=== PATIENT | female | born 1980 ===

== ENCOUNTER 2017-04-01 18:39 | Emergency (ER) | payer SELFPAY ==
[2017-04-01 18:45] VITALS: BP 154/78; PULSE 93; RESP 18; TEMP 98.7; O2SAT 98
[2017-04-01] MEDS ORDERED: Sodium Chloride 0.9% 1,000 ML IV STA (19:05)
--- NOTE | 2017-04-01 19:08 | ED PDOC ---
HPI: Female Pain Time Seen by Provider: 04/01/17 19:06 Chief Complaint (Nursing): Female Genitourinary Chief Complaint (Provider): VAGINAL BLEEDING History Per: Patient (36 Y/O FEMALE LMP 12/06/2016 HERE WITH 3 WEEKS OF VAGINAL BLEEDING HEAVY WITH CLOTS. PATIENT STATES SHE FEELS FEVERISH YESTERDAY AND UNSURE IF RELATED TO SYMPTOMS. HAS NO PRIOR TESTING FOR VAGINAL BLEEDING. HAS HAD BILATERAL TUBAL LIGATION TO PREVENT .) Past Medical History Reviewed: Historical Data, Nursing Documentation, Vital Signs Vital Signs: Last Vital Signs Temp 98.7 F 04/01/17 18:42 Pulse 93 H 04/01/17 18:42 Resp 18 04/01/17 18:42 BP 154/78 H 04/01/17 18:42 Pulse Ox 98 04/01/17 18:42 - Surgical History Surgical History: - Family History Family History: States: Diabetes, Hypertension - Home Medications Home Medications: Ambulatory Orders Medication Instructions Recorded Ondansetron Hydrochloride 4 mg PO Q6 PRN #12 tab 07/18/14 Ranitidine HCl [Zantac 150] 150 mg PO BID #20 tab 07/18/14 - Allergies Allergies/Adverse Reactions: Allergies Allergy/AdvReac Type Severity Reaction Status Date / Time No Known Allergies Allergy Verified 04/01/17 18:41 Review of Systems ROS Statement: Except As Marked, All Systems Reviewed And Found Negative Genitourinary Female: Positive for: Vaginal Bleeding Physical Exam - Reviewed Nursing Documentation Reviewed: Yes Vital Signs Reviewed: Yes - Physical Exam Appears: Positive for: Well, Non-toxic, No Acute Distress Head Exam: Positive for: ATRAUMATIC, NORMAL INSPECTION, NORMOCEPHALIC Skin: Positive for: Normal Color, Warm, DRY Eye Exam: Positive for: EOMI, Normal appearance, PERRL ENT: Positive for: Normal ENT Inspection Neck: Positive for: Normal, Painless ROM Cardiovascular/Chest: Positive for: Regular Rate, Rhythm Respiratory: Positive for: CNT, Normal Breath Sounds Gastrointestinal/Abdominal: Positive for: Normal Exam, Bowel Sounds, Soft Pelvic Exam: Positive for: Active Bleeding Back: Positive for: Normal Inspection Extremity: Positive for: Normal ROM Neurologic/Psych: Positive for: Alert, Oriented - Laboratory Results Urine POC: Negative - ECG O2 Sat by Pulse Oximetry: 98 - Progress ED Course And Treament: NS 1 LITER 500 ML PER HOUR Disposition - Clinical Impression Clinical Impression: Dysmenorrhea - Patient ED Disposition Is Patient to be Admitted: Transfer of Care - Disposition Disposition: Transfer of Care Disposition Time: 20:00 Condition: FAIR Print Language: GEORGIAN Patient Signed Over To: Cathi Mcmanus Handoff Comments: PENDING BLOODWORK/US
[2017-04-01 19:41] LABS: BASO # 0.1 K/uL (0.0-0.2); BASO % 0.9 % (0.0-2.0); EOS # 0.2 K/uL (0.0-0.7); EOS % 2.1 % (0.0-4.0); HEMATOCRIT 34.2 % (34.0-47.0); LYMPH # 2.6 K/uL (1.0-4.3); LYMPH % 22.5 % (20.0-40.0); MEAN CORPUSCULAR HEMOGLOBIN 26.3 pg (27.0-31.0); MEAN CORPUSCULAR HGB CONC 32.4 g/dL (33.0-37.0); MEAN PLATELET VOLUME 9.2 fl (7.2-11.7); MONO # 0.6 K/uL (0.0-0.8); MONO % 5.1 % (0.0-10.0); NEUT % 69.4 % (50.0-75.0); RED CELL DISTRIBUTION WIDTH 15.7 % (11.5-14.5); WHITE BLOOD COUNT 11.6 K/uL (4.8-10.8)
[2017-04-01 19:53] LABS: ALB/GLOB RATIO 1.2 (1.0-2.1); ALKALINE PHOSPHATASE 107 U/L (38-126); ALT/SGPT 55 U/L (9-52); AST/SGOT 48 U/L (14-36); BILIRUBIN,TOTAL 0.2 mg/dl (0.2-1.3); BLOOD UREA NITROGEN 14 mg/dl (7-17); CALCIUM 8.8 mg/dL (8.4-10.2); CARBON DIOXIDE 29 mmol/L (22-30); CHLORIDE 97 mmol/L (98-107); GFR AFRICAN-AMERICAN > 60; GLUCOSE,RANDOM 246 mg/dL (65-105); POTASSIUM 4.1 MMOL/L (3.6-5.0); SODIUM 137 mmol/l (132-148); TOTAL PROTEIN 7.8 G/DL (6.3-8.2)
--- NOTE | 2017-04-01 20:28 | ED PDOC ---
- Laboratory Results Result Diagrams: 04/01/17 19:15 04/01/17 19:15 Urine POC: Negative - ECG O2 Sat by Pulse Oximetry: 98 Medical Decision Making Medical Decision Making: Case endorsed to script writer from JACKY Collado at 20:00 pending diagnostic review and re-eval HPI: Female Pain Time Seen by Provider: 04/01/17 19:06 Chief Complaint (Nursing): Female Genitourinary Chief Complaint (Provider): VAGINAL BLEEDING History Per: Patient (36 Y/O FEMALE LMP 12/06/2016 HERE WITH 3 WEEKS OF VAGINAL BLEEDING HEAVY WITH CLOTS. PATIENT STATES SHE FEELS FEVERISH YESTERDAY AND UNSURE IF RELATED TO SYMPTOMS. HAS NO PRIOR TESTING FOR VAGINAL BLEEDING. HAS HAD BILATERAL TUBAL LIGATION TO PREVENT .) Hgb 11.1 US: IMPRESSION: 1.4 cm fibroid in the anterior lower uterine segment. Bilateral ovarian cysts as above. Pt educated on results and demonstrated full understanding. Importance of follow up was stressed, given [facility] and Pt advised that [facility] will be contacting her as well Disposition - Clinical Impression Clinical Impression: Dysmenorrhea, Uterine fibroid - POA Present On Arrival: None - Disposition [facility]errals[facility] [[facility]] Disposition: Routine/Home Disposition Time: 21:54 Condition: STABLE Prescriptions: Ibuprofen [Motrin] 600 mg PO Q6 #20 tab Instructions: Uterine Fibroids (ED) Forms: [employer] (Latvian) Print Language: GUATEMALAN
--- NOTE | 2017-04-01 21:23 | US ---
EXAM: US Pelvis, Transvaginal CLINICAL HISTORY: 36 years old, female; Signs and symptoms; Menstruation abnormalities; Irregular menstruation; Additional info: Dysfunctional uterine bleeding. TECHNIQUE: Real-time transvaginal pelvic ultrasound (complete) with image documentation. Transvaginal imaging was used for better evaluation of the endometrium and adnexa. COMPARISON: No relevant prior studies available. FINDINGS: Uterus/cervix: Measured at 9.9 x 5.1 x 6.6 cm. Normal endometrial stripe thickness, measured at 9 mm. 1.4 cm fibroid in the anterior lower uterine segment. Right ovary: Measured at 4.3 x 1.8 x 4.4 cm. 2.4 cm simple appearing cyst. Normal blood flow. Left ovary: Measured at 4.9 x 4.3 x 4.1 cm. 3.2 cm simple appearing cyst. Normal blood flow. Free fluid: No free fluid. IMPRESSION: 1.4 cm fibroid in the anterior lower uterine segment. Bilateral ovarian cysts as above.
== END 2017-04-01 21:52 | disposition home or self-care (01) ==
LOC: H.ER 18:39
DX: D25.9 Leiomyoma of uterus, unspecified (principal); N94.6 Dysmenorrhea, unspecified
CPT/HCPCS: 76830; 80053; 81025; 85025; 86850; 86900; 96360; 96361; 99283; J7040

== ENCOUNTER 2017-09-28 18:21 | Emergency (ER) | payer SELFPAY ==
[2017-09-28 19:01] VITALS: TEMP 98.4
[2017-09-28] MEDS ORDERED: Sodium Chloride 0.9% 1,000 ML IV STA ×2 (19:20→20:30)
[2017-09-28 19:53] LABS: BASO # 0.1 K/uL (0.0-0.2); BASO % 0.3 % (0.0-2.0); EOS % 0.2 % (0.0-4.0); HEMATOCRIT 28.3 % (34.0-47.0); LYMPH # 0.4 K/uL (1.0-4.3); LYMPH % 1.6 % (20.0-40.0); MEAN CELL VOLUME 65.8 fl (81.0-99.0); MEAN CORPUSCULAR HEMOGLOBIN 19.3 pg (27.0-31.0); MEAN CORPUSCULAR HGB CONC 29.4 g/dL (33.0-37.0); MEAN PLATELET VOLUME 8.9 fl (7.2-11.7); MONO # 0.9 K/uL (0.0-0.8); MONO % 3.5 % (0.0-10.0); NEUT # 25.5 K/uL (1.8-7.0); NEUT % 94.4 % (50.0-75.0); PLATELET COUNT 319 K/uL (130-400); RED CELL DISTRIBUTION WIDTH 20.3 % (11.5-14.5); WHITE BLOOD COUNT 27.1 K/uL (4.8-10.8)
[2017-09-28] MEDS ORDERED: Iohexol 240 (50 ml) PO ONE (19:59)
[2017-09-28 20:02] LABS: ALKALINE PHOSPHATASE 85 U/L (38-126); ALT/SGPT 47 U/L (9-52); AST/SGOT 29 U/L (14-36); BILIRUBIN,TOTAL 0.4 mg/dl (0.2-1.3); BLOOD UREA NITROGEN 17 mg/dl (7-17); CALCIUM 8.9 mg/dL (8.4-10.2); CARBON DIOXIDE 24 mmol/L (22-30); CHLORIDE 104 mmol/L (98-107); GFR AFRICAN-AMERICAN > 60; GLUCOSE,RANDOM 181 mg/dL (65-105); LIPASE 41 U/L (23-300); POTASSIUM 4.1 MMOL/L (3.6-5.0); SODIUM 140 mmol/l (132-148); TOTAL PROTEIN 8.3 G/DL (6.3-8.2)
--- NOTE | 2017-09-28 20:08 | ED PDOC ---
HPI: Abdomen Time Seen by Provider: 09/28/17 19:14 Chief Complaint (Nursing): GI Problem Chief Complaint (Provider): Nausea, vomiting, diarrhea History Per: Patient History/Exam Limitations: no limitations Onset/Duration Of Symptoms: Hrs Outside of [place] travel?: No Current Symptoms Are (Timing): Still Present Location Of Pain/Discomfort: Epigastric Associated Symptoms: Nausea, Vomiting, Diarrhea Additional Complaint(s): 37yo obese female, presents to ED for evaluation of nausea, vomiting, diarrhea since this afternoon. Patient states she was at work and she felt nauseous, then reports 3 episodes of food colored vomit and 1 following episode with blood tinged vomit. She reports epigastric pain and 2 episodes of watery, brown stool. She denies any fever, chills, sick contacts, recent travel, recent antibiotics use or recent medication use. No other complaints. Past Medical History Reviewed: Historical Data, Nursing Documentation, Vital Signs Vital Signs: Last Vital Signs Temp 98.4 F 09/28/17 21:03 Pulse 90 09/28/17 21:03 Resp 17 09/28/17 21:03 BP 132/70 09/28/17 21:03 Pulse Ox 98 09/29/17 02:39 - Medical History PMH: No Chronic Diseases - Surgical History Surgical History: - Family History Family History: States: Diabetes, Hypertension - Home Medications Home Medications: Ambulatory Orders Medication Instructions Recorded Azithromycin 250 mg PO DAILY #4 tablet 09/29/17 Ibuprofen [Motrin Tab] 600 mg PO Q6 #30 tab 09/29/17 - Allergies Allergies/Adverse Reactions: Allergies Allergy/AdvReac Type Severity Reaction Status Date / Time No Known Allergies Allergy Verified 09/28/17 18:58 Review of Systems ROS Statement: Except As Marked, All Systems Reviewed And Found Negative Constitutional: Negative for: Fever, Chills Gastrointestinal: Positive for: Nausea, Vomiting, Abdominal Pain, Diarrhea Physical Exam - Reviewed Nursing Documentation Reviewed: Yes Vital Signs Reviewed: Yes - Physical Exam Appears: Positive for: Non-toxic, Uncomfortable Skin: Positive for: Normal Color Eye Exam: Positive for: Normal appearance Neck: Positive for: Supple Cardiovascular/Chest: Positive for: Regular Rate, Rhythm Respiratory: Positive for: Normal Breath Sounds Gastrointestinal/Abdominal: Positive for: Soft, Tenderness (epigasstric) Neurologic/Psych: Positive for: Alert, Oriented - Laboratory Results Result Diagrams: 09/28/17 19:45 09/28/17 19:45 - ECG O2 Sat by Pulse Oximetry: 98 (rA) Pulse Ox Interpretation: Normal Medical Decision Making Medical Decision Making: Impression: Gastroenteritis Plan: -- VBG -- Labs -- CT Abdomen -- Pepcid 20 mg IV -- IV Fluids -- Zofran 4mg IV Reassess CT A/P with IV Contrast FINDINGS: Lower thorax: Small hiatal hernia. Bibasilar nonspecific infiltrates are present , and minimal right middle lobe consolidation consistent with atelectasis or pneumonia. ABDOMEN: Liver: Fatty liver. Gallbladder and bile ducts: Unremarkable. No ductal dilation. Pancreas: Unremarkable. No mass. No ductal dilation. Spleen: Unremarkable. No splenomegaly. Adrenals: Unremarkable. No mass. Kidneys and ureters: Unremarkable. No solid mass. No hydronephrosis. Stomach and bowel: Unremarkable. No obstruction. No mucosal thickening. Appendix: Normal appendix. PELVIS: Bladder: Distended bladder measuring 13.5 cm. Reproductive: Right ovarian hypodense cyst measuring 4.3 x 2.7 cm. Uterus is seen. High riding left ovary with multiple follicles. ABDOMEN and PELVIS: Intraperitoneal space: Unremarkable. No free air. No significant fluid collection. Bones/joints: No acute fracture. No dislocation. Soft tissues: Unremarkable. Vasculature: Unremarkable. No abdominal aortic aneurysm. Lymph nodes: Subcentimeter para-aortic and retroperitoneal lymph nodes. IMPRESSION: 1. Distended bladder measuring 13.5 cm. Correlation with patient's urine retention versus lack of voiding before the CT scan is recommended. 2. Right ovarian hypodense cyst measuring 4.3 x 2.7 cm.If clinically warranted, a pelvic ultrasound may be helpful for further assessment. 3. Bibasilar nonspecific infiltrates are present, and minimal right middle lobe consolidation consistent with atelectasis or pneumonia. 230AM Pt. significantly improved after fluids, lactate clearing. No pelvic pain, no abd pain at this time. Will treat for PNA given leukocytosis and findings on CT and Xray. Pt. asymptomatic at this time, likely an early PNA. Will give dose of ceftriaxone and azithromycin in ER. [facility] followup given. Referral to clinic provided. Return precautions were discussed including worsening fevers, cough, pain, chills or other concerning symptoms. Scribe Attestation: Documented by Randi Mike acting as a scribe for Willem Kimble MD. Provider Attestation: All medical record entries made by the Scribe were at my direction and personally dictated by me. I have reviewed the chart and agree that the record accurately reflects my personal performance of the history, physical exam, medical decision making, and the department course for this patient. I have also personally directed, reviewed, and agree with the discharge instructions and disposition. Disposition - Clinical Impression Clinical Impression: Pneumonia, Abdominal pain - Patient ED Disposition Is Patient to be Admitted: No - Disposition Referrals: [facility] [Outside] Disposition: Routine/Home Disposition Time: 02:50 Condition: IMPROVED Prescriptions: Azithromycin 250 mg PO DAILY #4 tablet Ibuprofen [Motrin Tab] 600 mg PO Q6 #30 tab Instructions: Pneumonia (ED), Acute Abdominal Pain (DC) Forms: [employer] (Vietnamese) Print Language: KOREAN
[2017-09-28 20:22] LABS: ALB/GLOB RATIO 1.1 (1.0-2.1)
[2017-09-28 20:26] LABS: VENOUS BLOOD GAS BASE EXCESS 0.3 mmol/L (0.0-2.0); VENOUS BLOOD GAS PCO2 45 mmHg (40-60); VENOUS BLOOD PH 7.37 (7.32-7.43)
[2017-09-28 21:03] VITALS: BP 132/70; PULSE 90; RESP 17
[2017-09-28 21:18] LABS: NEUTROPHIL 87 % (42-75); REACTIVE LYMPHOCYTES 1 % (0-0); TOTAL CELLS COUNTED 100
[2017-09-28 22:27] LABS: VENOUS BLOOD GAS BASE EXCESS -0.4 mmol/L (0.0-2.0); VENOUS BLOOD GAS PCO2 42 mmHg (40-60); VENOUS BLOOD PH 7.38 (7.32-7.43)
[2017-09-28] MEDS ORDERED: Iohexol 300 100 ML IJ ONE (23:35)
--- NOTE | 2017-09-29 00:28 | CT ---
EXAM: CT Abdomen and Pelvis With Intravenous Contrast CLINICAL HISTORY: 37 years old, female; Pain; Abdominal pain; Epigastric; Additional info: Epig pain, n/v/d, abd pain, wbc 28. Sent phy. Doc. TECHNIQUE: Axial computed tomography images of the abdomen and pelvis with intravenous contrast. All CT scans at this facility use one or more dose reduction techniques, viz.: automated exposure control; ma/kV adjustment per patient size (including targeted exams where dose is matched to indication; i.e. head); or iterative reconstruction technique. 672 images are submitted. Axial images are submitted and lung windows.Oral contrast was administered. Coronal and sagittal reformatted images were created and reviewed. CONTRAST: 95 mL of [id number] administered intravenously. COMPARISON: CT - ABD PELVIS PO IV CONTRAST 2014-07-18 00:07 FINDINGS: Lower thorax: Small hiatal hernia. Bibasilar nonspecific infiltrates are present, and minimal right middle lobe consolidation consistent with atelectasis or pneumonia. ABDOMEN: Liver: Fatty liver. Gallbladder and bile ducts: Unremarkable. No ductal dilation. Pancreas: Unremarkable. No mass. No ductal dilation. Spleen: Unremarkable. No splenomegaly. Adrenals: Unremarkable. No mass. Kidneys and ureters: Unremarkable. No solid mass. No hydronephrosis. Stomach and bowel: Unremarkable. No obstruction. No mucosal thickening. Appendix: Normal appendix. PELVIS: Bladder: Distended bladder measuring 13.5 cm. Reproductive: Right ovarian hypodense cyst measuring 4.3 x 2.7 cm. Uterus is seen. High riding left ovary with multiple follicles. ABDOMEN and PELVIS: Intraperitoneal space: Unremarkable. No free air. No significant fluid collection. Bones/joints: No acute fracture. No dislocation. Soft tissues: Unremarkable. Vasculature: Unremarkable. No abdominal aortic aneurysm. Lymph nodes: Subcentimeter para-aortic and retroperitoneal lymph nodes. IMPRESSION: 1. Distended bladder measuring 13.5 cm. Correlation with patient's urine retention versus lack of voiding before the CT scan is recommended. 2. Right ovarian hypodense cyst measuring 4.3 x 2.7 cm.If clinically warranted, a pelvic ultrasound may be helpful for further assessment. 3. Bibasilar nonspecific infiltrates are present, and minimal right middle lobe consolidation consistent with atelectasis or pneumonia.
[2017-09-29] MEDS ORDERED: cefTRIAXone 2 GM in Sodium Chloride 0.9% 100 ML IVPB STA (02:22)
[2017-09-29 02:38] VITALS: O2SAT 98
--- NOTE | 2017-09-29 09:26 | RAD ---
HISTORY: possible PNA on CT, leukocytosis COMPARISON: 09/03/2010 TECHNIQUE: Chest PA and lateral FINDINGS: LUNGS: No active pulmonary disease. PLEURA: No significant pleural effusion identified. No pneumothorax apparent. CARDIOVASCULAR: Normal. OSSEOUS STRUCTURES: No significant abnormalities. VISUALIZED UPPER ABDOMEN: Normal. OTHER FINDINGS: None. IMPRESSION: No active disease. No significant interval change compared to the prior examination(s).
== END 2017-09-29 04:03 | disposition home or self-care (01) ==
LOC: H.ER 18:21
DX: J18.9 Pneumonia, unspecified organism (principal); K52.9 Noninfective gastroenteritis and colitis, unspecified; N83.201 Unspecified ovarian cyst, right side
CPT/HCPCS: 71020; 74177; 80053; 81025; 82803; 83690; 85025; 87040; 87086; 96374; 96375; 99284; J0696; J2405; J7040; Q9966; Q9967

== ENCOUNTER 2018-07-10 10:01 | Emergency (ER) | payer OTHER, SELFPAY ==
[2018-07-10 10:15] VITALS: BMI 43.4
[2018-07-10] MEDS ORDERED: Sodium Chloride 0.9% 1,000 ML IV STA (10:54)
[2018-07-10 11:33] LABS: BASO % 0.4 % (0.0-2.0); EOS % 0.1 % (0.0-4.0); LYMPH # 1.3 K/uL (1.0-4.3); LYMPH % 9.8 % (20.0-40.0); MEAN CORPUSCULAR HEMOGLOBIN 22.8 pg (27.0-31.0); MEAN CORPUSCULAR HGB CONC 32.1 g/dL (33.0-37.0); MEAN PLATELET VOLUME 8.8 fl (7.2-11.7); MONO # 1.3 K/uL (0.0-0.8); MONO % 9.6 % (0.0-10.0); NEUT # 10.8 K/uL (1.8-7.0); NEUT % 80.1 % (50.0-75.0); PLATELET COUNT 284 K/uL (130-400); RBC 4.37 Mil/uL (3.80-5.20); RED CELL DISTRIBUTION WIDTH 17.9 % (11.5-14.5); WHITE BLOOD COUNT 13.4 K/uL (4.8-10.8)
[2018-07-10 11:40] LABS: SQUAMOUS EPITHIAL 7 /hpf (0-5); URINE BACTERIA MANY (<OCC); URINE BILIRUBIN NEGATIVE (NEGATIVE); URINE BLOOD NEGATIVE (NEGATIVE); URINE CLARITY CLOUDY (Clear); URINE COLOR YELLOW (YELLOW); URINE GLUCOSE (UA) NEG (Normal); URINE LEUKOCYTE ESTERASE SMALL Leu/uL (Negative); URINE PROTEIN 100 mg/dL (NEGATIVE)
[2018-07-10 11:43] LABS: ALT/SGPT 25 U/L (9-52); AST/SGOT 24 U/L (14-36); BLOOD UREA NITROGEN 9 mg/dl (7-17); CALCIUM 8.8 mg/dL (8.4-10.2); GFR NON-AFRICAN AMERICAN > 60; LIPASE 45 U/L (23-300)
[2018-07-10 12:05] LABS: EOSINOPHIL 1 % (0-7); LYMPHOCYTE 10 % (20-50); MONOCYTE 9 % (0-10); NEUTROPHIL 80 % (42-75); TOTAL CELLS COUNTED 100
[2018-07-10 12:06] LABS: ANISOCYTOSIS SLIGHT; HYPOCHROMIC SLIGHT; PLATELET ESTIMATE NORMAL (NORMAL)
[2018-07-10 13:22] VITALS: TEMP 99.2
[2018-07-10 13:24] VITALS: BP 110/61; PULSE 78; RESP 15; O2SAT 96
[2018-07-10 14:04] LABS: VENOUS BLOOD GAS PCO2 38 mmHg (40-60); VENOUS BLOOD GAS PO2 52 mm/Hg (30-55); VENOUS BLOOD PH 7.43 (7.32-7.43)
--- NOTE | 2018-07-10 14:42 | ED PDOC ---
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 Patient reports that Tylenol no longer helps. Patient is able to tolerate PO, but denies nausea, vomiting, diarrhea, constipation, sick contacts, recent illnesses or any other medical complaints. PMD: none provided LNMP: 06/25/2018 Past Medical History Reviewed: Historical Data, Nursing Documentation, Vital Signs Vital Signs: Last Vital Signs Temp 99.2 F 07/10/18 13:24 Pulse 78 07/10/18 13:24 Resp 15 07/10/18 13:24 BP 110/61 07/10/18 13:24 Pulse Ox 96 07/10/18 14:49 - Medical History PMH: No Chronic Diseases - Surgical History Surgical History: No Surg Hx, - Family History Family History: States: Diabetes, Hypertension - Home Medications Home Medications: Ambulatory Orders Medication Instructions Recorded Cefdinir [Omnicef] 300 mg PO BID #20 cap 03/14/18 Cranberry 500 mg PO DAILY #20 capsule 03/14/18 Ibuprofen [Motrin Tab] 600 mg PO TID #20 tab 03/14/18 traMADol [Ultram] 50 mg PO TID #7 tab 03/14/18 levoFLOXacin [Levaquin] 750 mg PO DAILY #5 tab 07/10/18 - Allergies Allergies/Adverse Reactions: Allergies Allergy/AdvReac Type Severity Reaction Status Date / Time No Known Allergies Allergy Verified 03/14/18 10:51 Review of Systems ROS Statement: Except As Marked, All Systems Reviewed And Found Negative Constitutional: Positive for: Fever Gastrointestinal: Positive for: Abdominal Pain (lower), Other (left flank pain ) . Negative for: Nausea, Vomiting, Diarrhea, Constipation Genitourinary Female: Positive for: Dysuria Physical Exam - Reviewed Nursing Documentation Reviewed: Yes Vital Signs Reviewed: Yes - Physical Exam Appears: Positive for: Well (Patients blood pressure is normal and is tired but no cardiopulmonary distress) Skin: Positive for: Diaphoresis (and febrile) Cardiovascular/Chest: Positive for: Tachycardia, Other (regular rhythm) Respiratory: Positive for: Normal Breath Sounds, Other (respiratory rate normal ) Gastrointestinal/Abdominal: Positive for: Soft, Tenderness (suprapubic) Back: Positive for: L CVA Tenderness. Negative for: R CVA Tenderness Extremity: Positive for: Normal ROM (upper and lower). Negative for: Pedal Edema, Deformity Neurologic/Psych: Positive for: Alert, Oriented (x3) - Laboratory Results Result Diagrams: 07/10/18 11:15 07/10/18 11:15 - ECG O2 Sat by Pulse Oximetry: 96 (RA) Pulse Ox Interpretation: Normal Medical Decision Making Medical Decision Making: Time: 1054 --Possible UTI/Pyelonephritis. Rule out sepsis Initial Plan: --Labs --IV fluids --Urine and blood cultures --Tylenol --Antibiotics pending results --Reassess patient Time: 1337 --Does not meet any criteria for Qsofa, 3 out of 4 SIRS met, will reassess patient after treatment. Time: 1606 --Patient with improved symptoms on reassessment. Fever has not returned. Patient is able to tolerate PO. She states pain as improved. Patient given IV antibiotics in ED. She will be discharged with a prescription for Levaquin and given a referral for outpatient clinic. Advised to follow up within 2 days, strict return parameters if symptoms worsen or new ones develop. Scribe Attestation: Documented by Edith Correia, acting as a scribe for Brisa Singh MD Provider Scribe Attestation: All medical record entries made by the Scribe were at my direction and personally dictated by me. I have reviewed the chart and agree that the record accurately reflects my personal performance of the history, physical exam, medical decision making, and the department course for this patient. I have also personally directed, reviewed, and agree with the discharge instructions and disposition. Disposition - Clinical Impression Clinical Impression: Pyelonephritis - Disposition Referrals: [facility] [Outside] Disposition Time: 16:06 Condition: IMPROVED Additional Instructions: Take antibiotics as prescribed. Follow up with primary medical doctor in 2 days as referred. Return to the emergency department if symptoms worsen or new symptoms develop. Prescriptions: levoFLOXacin [Levaquin] 750 mg PO DAILY #5 tab Instructions: Urinary Tract Infection, Adult (DC), Kidney Infection (DC) Forms: [employer] (Haitian), [employer] (Citizen [place]) Print Language: LITHUANIAN
[2018-07-10] MEDS ORDERED: cefTRIAXone (Rocephin) 1 gm Inj ONE (14:46)
== END 2018-07-10 16:39 | disposition home or self-care (01) ==
LOC: H.ER 10:01
DX: N12 Tubulo-interstitial nephritis, not specified as acute or chronic (principal)
CPT/HCPCS: 80053; 81003; 81025; 82803; 83690; 85025; 87040; 87086; 87181; 96361; 96365; 96375; 99284; J0696; J1885; J7030

== ENCOUNTER 2018-12-25 18:12 | Emergency (ER) | payer OTHER ==
[2018-12-25 18:12] VITALS: BMI 43.4
[2018-12-25 18:31] VITALS: BP 146/91; PULSE 92; RESP 16; TEMP 98.4; O2SAT 97
--- NOTE | 2018-12-25 21:17 | ED PDOC ---
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) History/Exam Limitations: language barrier Onset/Duration Of Symptoms: Days (one) Current Symptoms Are (Timing): Still Present (Pt presents to the ED with a complaint of one day of right nipple pain without discharge, drainage, or discoloration; Pt indicates she has felt no lumps, bumps or indurations or fibrous tissue; Pt denies NVD and other symptoms; pt denies a family history that includes breast cancer) Past Medical History Reviewed: Historical Data, Nursing Documentation, Vital Signs Vital Signs: Last Vital Signs Temp 98.4 F 12/25/18 18:30 Pulse 92 H 12/25/18 18:30 Resp 16 12/25/18 18:30 BP 146/91 H 12/25/18 18:30 Pulse Ox 97 12/25/18 18:30 - Surgical History Surgical History: - Family History Family History: States: Diabetes, Hypertension - Home Medications Home Medications: Ambulatory Orders Medication Instructions Recorded Cefdinir [Omnicef] 300 mg PO BID #20 cap 03/14/18 Cranberry 500 mg PO DAILY #20 capsule 03/14/18 Ibuprofen [Motrin Tab] 600 mg PO TID #20 tab 03/14/18 traMADol [Ultram] 50 mg PO TID #7 tab 03/14/18 levoFLOXacin [Levaquin] 750 mg PO DAILY #5 tab 07/10/18 - Allergies Allergies/Adverse Reactions: Allergies Allergy/AdvReac Type Severity Reaction Status Date / Time No Known Allergies Allergy Verified 03/14/18 10:51 Review of Systems Skin: Positive for: Other (breast pain) Physical Exam - Reviewed Nursing Documentation Reviewed: Yes Vital Signs Reviewed: Yes - Physical Exam Appears: Positive for: Well, Non-toxic, No Acute Distress. Negative for: Uncomfortable Head Exam: Positive for: ATRAUMATIC, NORMAL INSPECTION Skin: Positive for: Normal Color (The right breast was palpated with Austyn Cardoza RN as a pet counselor. The breast was wholly non-tender, with no discharge, discoloration or drainage. There was no regions of tenderness, lump, induration or fibrous tissues found), Warm, Dry. Negative for: Diaphoresis, Pallor, Rash Cardiovascular/Chest: Positive for: Regular Rate, Rhythm Respiratory: Positive for: Normal Breath Sounds Pulses-Carotid (L): 2+ Pulses-Carotid (R): 2+ Pulses-Radial (L): 2+ Pulses-Radial (R): 2+ - ECG O2 Sat by Pulse Oximetry: 97 Medical Decision Making Medical Decision Making: I: breast pain P: breast exam refer to [facility] clinic for Mammography and screening The patient is safe and stable for dischrge The plan of action was discussed with the patient and she had no further questions Disposition - Clinical Impression Clinical Impression: Pain of breast - Patient ED Disposition Is Patient to be Admitted: No Doctor Will See Patient In The: Office Counseled Patient/Family Regarding: Studies Performed, Diagnosis, Need For Followup - Disposition [facility]errals: [facility] [Outside] [facility] [Outside] [facility] [Outside] Disposition: Routine/Home Disposition Time: 21:22 Condition: STABLE Instructions: Mastalgia, Common Breast Problems, Mastalgia (DC) Forms: [employer] (Cymraes), [employer] (French) Print Language: UKRAINIAN
== END 2018-12-25 21:30 | disposition home or self-care (01) ==
LOC: H.ER 18:12
DX: N64.4 Mastodynia (principal)

== ENCOUNTER 2019-03-14 08:31 | Observation (INO) | payer OTHER, SELFPAY ==
[2019-03-14 08:37] VITALS: BMI 44.6
--- NOTE | 2019-03-14 09:21 | ED PDOC ---
HPI:STROKE - Time Time: - Historian Historian: Patient - Chief Complaint Chief Complaint: other (Headache) - Onset Date: 03/11/19 Time: 12:00 Onset: Days (3) - Timing Timing: Persistent - Severity of pain Maximum severity:: Mild Pain Scale:: 2 Severity Current: Mild Pain Scale:: 2 - Quality of Pain Quality of Pain:: Aching - Associated Symptoms Associated symptoms:: Headache - Exacerbated by Exacerbated by:: Nothing - Relieved by Relieved by:: Nothing - TPA Positive for Contraindication: Yes Reason tPA is not being Administered: 3 days sxs - Notes: Notes:: Right sided headache assoc with body aches, pain upper and lower ext bilat x 3 days. H/o CVA with right sided facial weakness since 2008. No new weakness described. NIHSS Stroke Scale - Date/Time Evaluation Performed Date Performed: 03/14/19 Time Performed: 09:21 When Was NIHSS Performed: Baseline - How Severe is the Stroke Level of Consciousness: 0=Alert LOC to Questions: 0=Both comments correct LOC to commands: 0=Obeys both correctly Best Gaze: 0=Normal Visual: 0=No visual loss Facial: 2=Partial (lower face paralysis) Motor Arm - Left: 0=No drift Motor Arm - Right: 0=No drift Motor Leg - Left: 0=No drift Motor Leg - Right: 0=No drift Limb Ataxia: 0=Absent Sensory: 0=Normal Best Language: 0=No aphasia Dysarthia: 0=Normal articulation Extinction & Inattention (Neglect): 0=Normal, no object Score: 2 rTPA Inclusion/Exclusion - Refusal of Treatment Patient Refused Treatment: No - Inclusion Criteria for Altepase Patient is 18 years or Older: Yes The Clinical Diagnosis of Ischemic Stroke That is Causing a Potentially Disabling Neurological Deficit: No Time of Onset is Well Established to be Less Than 270 Minute Before Treatment Would Begin: No Risk/Benefit Discussed With Patient/Family Member Present: No Past Medical History Vital Signs: Last Vital Signs Temp 98.1 F 03/14/19 08:35 Pulse 72 03/14/19 08:35 Resp 17 03/14/19 08:35 BP 148/79 03/14/19 08:35 Pulse Ox 98 03/14/19 08:54 Primary Care Provider: FAMILY PROVIDER,NO - Medical History PMH: CVA (2008 right facial weakness) - Surgical History Surgical History: - Family History Family History: States: Diabetes, Hypertension - Home Medications Home Medications: Ambulatory Orders Medication Instructions Recorded Cranberry 500 mg PO DAILY #20 capsule 03/14/18 Ibuprofen [Motrin Tab] 600 mg PO TID #20 tab 03/14/18 traMADol [Ultram] 50 mg PO TID #7 tab 03/14/18 Acetaminophen [Tylenol 325mg tab] 650 mg PO Q6 PRN tab 03/15/19 Aspirin [Aspirin Chewable] 81 mg PO DAILY chew 03/15/19 - Allergies Allergies/Adverse Reactions: Allergies Allergy/AdvReac Type Severity Reaction Status Date / Time No Known Allergies Allergy Verified 03/14/19 08:53 Review of Systems ROS Statement: Except As Marked, All Systems Reviewed And Found Negative Neurological: Positive for: Headache Physical Exam - Reviewed Nursing Documentation Reviewed: Yes Vital Signs Reviewed: Yes - Physical Exam Appears: Positive for: Non-toxic, No Acute Distress Head Exam: Positive for: ATRAUMATIC, NORMAL INSPECTION, NORMOCEPHALIC Skin: Positive for: Normal Color, Warm, DRY Eye Exam: Positive for: EOMI, Normal appearance, PERRL ENT: Positive for: Normal ENT Inspection Neck: Positive for: Normal, Painless ROM Cardiovascular/Chest: Positive for: Regular Rate, Rhythm Respiratory: Positive for: CNT, Normal Breath Sounds Gastrointestinal/Abdominal: Positive for: Normal Exam, Soft Back: Positive for: Normal Inspection Extremity: Positive for: Normal ROM Neurological/Psych: Positive for: Awake, Alert, Normal Tone, Facial Droop (right sided) - Laboratory Results Result Diagrams: 03/15/19 05:30 03/15/19 05:30 - ECG O2 Sat by Pulse Oximetry: 98 Disposition - Clinical Impression Clinical Impression: History of CVA (cerebrovascular accident), Severe headache - Patient ED Disposition Is Patient to be Admitted: Transfer of Care - Disposition Disposition: Transfer of Care Disposition Time: 14:00 Condition: FAIR Patient Signed Over To: Jamal Cortez III (Pending neuro consult and reeval)
[2019-03-14 10:19] LABS: BASO # 0.1 K/uL (0.0-0.2); BASO % 1.2 % (0.0-2.0); EOS # 0.2 K/uL (0.0-0.7); EOS % 2.1 % (0.0-4.0); HEMOGLOBIN 9.9 g/dL (12.0-16.0); LYMPH # 1.6 K/uL (1.0-4.3); LYMPH % 20.1 % (20.0-40.0); MEAN CELL VOLUME 74.4 fl (81.0-99.0); MEAN CORPUSCULAR HEMOGLOBIN 23.4 pg (27.0-31.0); MEAN CORPUSCULAR HGB CONC 31.4 g/dL (33.0-37.0); MEAN PLATELET VOLUME 8.7 fl (7.2-11.7); MONO # 0.6 K/uL (0.0-0.8); MONO % 7.8 % (0.0-10.0); NEUT # 5.5 K/uL (1.8-7.0); NEUT % 68.8 % (50.0-75.0); NRBC % 0.1 % (0.0-0.0); RBC 4.24 Mil/uL (3.80-5.20); RED CELL DISTRIBUTION WIDTH 20.5 % (11.5-14.5)
[2019-03-14 10:29] LABS: ALB/GLOB RATIO 1.1 (1.0-2.1); ALBUMIN 3.8 g/dL (3.5-5.0); BLOOD UREA NITROGEN 11 mg/dl (7-17); CALCIUM 8.3 mg/dL (8.4-10.2); GFR NON-AFRICAN AMERICAN > 60
[2019-03-14 10:30] LABS: ALT/SGPT 20 U/L (9-52); AST/SGOT 32 U/L (14-36)
--- NOTE | 2019-03-14 11:42 | CARD ---
APPROVED REPORT Date of service: 03/14/2019 EKG Measurement Heart [id number] <Conclusion> Normal sinus rhythm Normal ECG
--- NOTE | 2019-03-14 12:45 | CT ---
Date of service: 03/14/2019 PROCEDURE: CT HEAD WITHOUT CONTRAST. HISTORY: r/o bleed COMPARISON: None available. TECHNIQUE: Axial computed tomography images were obtained through the head/brain without intravenous contrast. Radiation dose: Total exam DLP = 850.22 mGy-cm. Apparent thickening of the with the patient's name the the the stone evident abutting on the This CT exam was performed using one or more of the following dose reduction techniques: Automated exposure control, adjustment of the mA and/or kV according to patient size, and/or use of iterative reconstruction technique. FINDINGS: HEMORRHAGE: No acute parenchymal, subarachnoid or extra-axial hemorrhage. BRAIN: No evidence of large acute infarct. No obvious parenchymal nor extra-axial masses or collections seen on this noncontrast study. No acute intracranial VENTRICLES: Unremarkable. No hydrocephalus. CALVARIUM: There are no acute calvarial fractures. PARANASAL SINUSES: Unremarkable as visualized. No significant inflammatory changes. MASTOID AIR CELLS: Unremarkable as visualized. No inflammatory changes. OTHER FINDINGS: None. IMPRESSION: No acute intracranial hemorrhage.
--- NOTE | 2019-03-14 14:22 | ED PDOC ---
- Laboratory Results Result Diagrams: 03/15/19 05:30 03/15/19 05:30 Lab Results: Total Bilirubin 0.4 mg/dl (0.2-1.3) 03/14/19 09:45 AST 32 U/L (14-36) 03/14/19 09:45 ALT 20 U/L (9-52) 03/14/19 09:45 Alkaline Phosphatase 78 U/L (38-126) 03/14/19 09:45 Total Protein 7.2 G/DL (6.3-8.2) 03/14/19 09:45 Albumin 3.8 g/dL (3.5-5.0) 03/14/19 09:45 Globulin 3.4 gm/dL (2.2-3.9) 03/14/19 09:45 Albumin/Globulin Ratio 1.1 (1.0-2.1) 03/14/19 09:45 - ECG O2 Sat by Pulse Oximetry: 98 (RA) Pulse Ox Interpretation: Normal Medical Decision Making Medical Decision Making: Time: 1899 -- Patient endorsed to me by Dr. Godinez, pending neurology consult. Dr John neurology saw patient in ED and recommends MRI and ASA initiation. To observe to hospitalist for stroke workup. Scribe Attestation: Documented by Kathrin Ruiz, acting as a scribe for Jamal Cortez III, DO. Provider Scribe Attestation: All medical record entries made by the Scribe were at my direction and personally dictated by me. I have reviewed the chart and agree that the record accurately reflects my personal performance of the history, physical exam, medical decision making, and the department course for this patient. I have also personally directed, reviewed, and agree with the discharge instructions and disposition. Disposition Counseled Patient/Family Regarding: Studies Performed, Diagnosis - Clinical Impression Clinical Impression: History of CVA (cerebrovascular accident), Severe headache - POA Present On Arrival: None - Disposition Disposition: Hospitalized as Observation Patient Disposition Time: 16:00 Condition: FAIR
[2019-03-14] MEDS ORDERED: Sodium Chloride 0.9% 1,000 ML IV STA (14:42)
--- NOTE | 2019-03-14 18:39 | CP.PCM.CON ---
History of Present Illness - History of Present Illness History of Present Illness: Neurology Consultation Note: Consult requested by Dr. Cortez The patient is a 38-year-old woman with a previous history of hypothyroidism, CVA and some residual right side weakness (slight), who states that she has been having right side neck pain, dizziness, headache, and malaise for the past several days. Review of Systems - Constitutional Constitutional: As Per HPI - EENT Eyes: absent: As Per HPI, Blind Spots, Blurred Vision, Change in Vision, Decreased Night Vision, Diplopia, Discharge, Dry Eye, Exophthalmos, Floaters, Irritation, Itchy Eyes, Loss of Peripheral Vision, Pain, Photophobia, Requires Corrective Lenses, Sees Flashes, Spots in Vision, Tunnel Vision, Other Visual Disturbances, Loss of Vision, Other Ears: absent: As Per HPI, Decreased Hearing, Ear Discharge, Ear Pain, Tinnitus, Abnormal Hearing, Disequilibrium, Dizziness, Other Nose/Mouth/Throat: absent: As Per HPI, Epistaxis, Nasal Congestion, Nasal Discharge, Nasal Obstruction, Nasal Trauma, Nose Pain, Post Nasal Drip, Sinus Pain, Sinus Pressure, Bleeding Gums, Change in Voice, Dental Pain, Dry Mouth, Dysphagia, Halitosis, Hoarsness, Lip Swelling, Mouth Lesions, Mouth Pain, Odynophagia, Sore Throat, Throat Swelling, Tongue Swelling, Facial Pain, Neck Pain, Neck Mass, Other - Cardiovascular Cardiovascular: absent: As Per HPI, Acrocyanosis, Chest Pain, Chest Pain at Rest, Chest Pain with Activity, Claudication, Diaphoresis, Dyspnea, Dyspnea on Exertion, Edema, Irregular Heart Rhythm, Pain Radiating to Arm/Neck/Jaw, Leg Edema, Leg Ulcers, Lightheadedness, Orthopnea, Palpitations, Paroxysmal Nocturnal Dyspnea, Pedal Edema, Radiating Pain, Rapid Heart Rate, Slow Heart Rate, Syncope, Other - Respiratory Respiratory: absent: As Per HPI, Cough, Dyspnea, Hemoptysis, Dyspnea on Exertion, Wheezing, Snoring, Stridor, Pain on Inspiration, Chest Congestion, Excessive Mucous Production, Change in Mucous Color, Pain with Coughing, Other - Gastrointestinal Gastrointestinal: absent: As Per HPI, Abdominal Pain, Belching, Bloating, Change in Bowel Habits, Change in Stool Character, Coffee Ground Emesis, Constipation, Cramping, Diarrhea, Dyspepsia, Dysphagia, Early Satiety, Excessive Flatus, Fecal Incontinence, Heartburn, Hematemesis, Hematochezia, Loose Stools, Melena, Nausea, Odynophagia, Temesmus, Vomiting, Other - Musculoskeletal Musculoskeletal: absent: As Per HPI, Abnormal Gait, Arthralgias, Atrophy, Back Pain, Deformity, Joint Swelling, Limited Range of Motion, Loss of Height, Muscle Cramps, Muscle Weakness, Myalgias, Neck Pain, Numbness, Radiating Pain into Limb, Stiffness, Tingling, Other - Neurological Neurological: As Per HPI - Psychiatric Psychiatric: absent: As Per HPI, Abnormal Sleep Pattern, Anhedonia, Anxiety, Auditory Hallucinations, Behavioral Changes, Change in Appetite, Change in Libido, Confusion, Depression, Difficulty Concentrating, Hallucinations, Homicidal Ideation, Hopelessness, Irritability, Memory Loss, Mood Swings, Panic Attacks, Paranoia, Suicidal Ideation, Visual Hallucinations, Tactile Hallucinations, Other - Endocrine Endocrine: absent: As Per HPI, Change in Body Appearance, Change in Libido, Cold Intolorance, Deepening of Voice, Excessive Sweating, Fatigue, Flushing, Heat Intolorance, Increase in Ring/Shoe/Hat Size, Palpitations, Polydipsia, Polyphagia, Polyuria, Other - Hematologic/Lymphatic Hematologic: absent: As Per HPI, Easy Bleeding, Easy Bruising, Lymphadenopathy, Other Past Patient History - Past Social History Smoking Status: Never Smoked - NEUROLOGICAL HX Cerebrovascular Accident: Yes - PSYCHIATRIC Hx Substance Use: No - SURGICAL HISTORY Hx Surgeries: Yes Hx Section: Yes (2) Hx Tubal Ligation: Yes - ANESTHESIA Hx Anesthesia: Yes Hx Anesthesia Reactions: No Hx Malignant Hyperthermia: No Meds Allergies/Adverse Reactions: Allergies Allergy/AdvReac Type Severity Reaction Status Date / Time No Known Allergies Allergy Verified 03/14/19 08:53 - Medications Medications: Current Medications Acetaminophen (Tylenol 325mg Tab) 650 mg PO Q6 PRN PRN Reason: Headache Aspirin (Aspirin Chewable) 81 mg PO DAILY [facility] Docusate Sodium (Colace Liquid) 100 mg NG BID PRN PRN Reason: Constipation Pantoprazole Sodium (Protonix Ec Tab) 40 mg PO DAILY [facility] Physical Exam - Constitutional Appears: Well - Head Exam Head Exam: ATRAUMATIC, NORMAL INSPECTION, NORMOCEPHALIC - Eye Exam Eye Exam: EOMI, Normal appearance, PERRL Pupil Exam: NORMAL ACCOMODATION, PERRL - ENT Exam ENT Exam: Mucous Membranes Moist, Normal Exam - Neck Exam Neck exam: Positive for: Normal Inspection - Respiratory Exam Respiratory Exam: Clear to Auscultation Bilateral, NORMAL BREATHING PATTERN - Cardiovascular Exam Cardiovascular Exam: REGULAR RHYTHM, +S1, +S2 - GI/Abdominal Exam GI & Abdominal Exam: Normal Bowel Sounds, Soft. absent: Tenderness - Extremities Exam Extremities exam: Positive for: normal inspection - Back Exam Back exam: NORMAL INSPECTION - Neurological Exam Neurological exam: Abnormal Gait, Alert, CN II-XII Intact, Oriented x3, Reflexes Normal Additional comments: Slight right facial droop and right lower extremity drift. NIHSS = 2 - Psychiatric Exam Psychiatric exam: Normal Affect, Normal Mood - Skin Skin Exam: Dry, Intact, Normal Color, Warm Results - Vital Signs Recent Vital Signs: Last Vital Signs Temp 98.1 F 03/14/19 08:35 Pulse 72 03/14/19 08:35 Resp 17 03/14/19 08:35 BP 148/79 03/14/19 08:35 Pulse Ox 98 03/14/19 16:38 - Labs Result Diagrams: 03/14/19 09:45 03/14/19 09:45 Labs: Laboratory Results - last 24 hr 03/14/19 03/14/19 09:45 09:45 WBC 8.0 RBC 4.24 Hgb 9.9 L Hct 31.6 L MCV 74.4 L D MCH 23.4 L MCHC 31.4 L RDW 20.5 H Plt Count 262 MPV 8.7 Neut % (Auto) 68.8 Lymph % (Auto) 20.1 [place] % (Auto) 7.8 Eos % (Auto) 2.1 Baso % (Auto) 1.2 Neut # (Auto) 5.5 Lymph # (Auto) 1.6 [place] # (Auto) 0.6 Eos # (Auto) 0.2 Baso # (Auto) 0.1 Sodium 136 Potassium 3.9 Chloride 102 Carbon Dioxide 26 Anion Gap 12 BUN 11 Creatinine 0.5 L Est GFR ( Amer) > 60 Est GFR (Non-Af Amer) > 60 Random Glucose 229 H Calcium 8.3 L Total Bilirubin 0.4 AST 32 ALT 20 Alkaline Phosphatase 78 Total Protein 7.2 Albumin 3.8 Globulin 3.4 Albumin/Globulin Ratio 1.1 Assessment & Plan (1) Headache Assessment and Plan: The CT head does not show a sign of a previous stroke. The patient may have had a complicated migraine in the past and may be having another one now. However, due to her current symptoms and the history provided, I believe an MRI of the brain is warranted for further evaluation. I recommend obtaining an MRI of the brain without contrast as well as MRA of the head/neck without contrast. If this is normal, we will manage as a complicated migraine. In addition, aspirin 81 mg daily is recommended. Since the symptoms are ongoing and the patient's BP is normal, we will allow for permissive HTN for now. Fluids with NS at 100 mL/hr are recommended. PT/OT eval and treatment if needed. Thank you for this consultation. Status: Acute
--- NOTE | 2019-03-14 19:00 | CP.PCM.HP ---
<Odilia Collins - Last Filed: 03/14/19 19:16> History of Present Illness - History of Present Illness History of Present Illness: CC: headache HPI: 38 YO Female with PMHx of CVA presents to [facility] ED for headache. Patient states that the headache has been present for the past 3 days, on/off, located like a band-pattern in her head. Yesterday the headache worsened and returned today which finally brought patient to the hospital. Headache is not associated with visual stimuli, light/sound sensitivity, blurry vision, n/v, weakness/numbness. Notes that at times she feels mild numbness in her RUE and RLE, has been present for years now. PMHx: CVA SurGHx: denies FHx: Father with DM, mother with HTN SHx: lives with family, denies ETOH, smoking and illicit drug use Allergies: NKDA Meds: no meds at home Present on Admission - Present on Admission Any Indicators Present on Admission: No Review of Systems - Constitutional Constitutional: absent: Chills, Fever - EENT Eyes: absent: Blurred Vision - Cardiovascular Cardiovascular: absent: Chest Pain, Dyspnea, Palpitations - Respiratory Respiratory: absent: Cough, Dyspnea - Gastrointestinal Gastrointestinal: absent: Abdominal Pain, Nausea, Vomiting - Musculoskeletal Musculoskeletal: absent: Numbness - Neurological Neurological: absent: Confusion, Focal Weakness, Tremor, Weakness Past Patient History - Past Social History Smoking Status: Never Smoked Alcohol: None Drugs: Denies Home Situation {Lives}: With Family - NEUROLOGICAL HX Cerebrovascular Accident: Yes - PSYCHIATRIC Hx Substance Use: No - SURGICAL HISTORY Hx Surgeries: Yes Hx Section: Yes (2) Hx Tubal Ligation: Yes - ANESTHESIA Hx Anesthesia: Yes Hx Anesthesia Reactions: No Hx Malignant Hyperthermia: No Meds Allergies/Adverse Reactions: Allergies Allergy/AdvReac Type Severity Reaction Status Date / Time No Known Allergies Allergy Verified 03/14/19 08:53 Physical Exam - Constitutional Appears: No Acute Distress, Other (R sided facial droop ) - Eye Exam Eye Exam: EOMI - ENT Exam ENT Exam: Mucous Membranes Moist - Respiratory Exam Respiratory Exam: Clear to Auscultation Bilateral, NORMAL BREATHING PATTERN. absent: Wheezes - Cardiovascular Exam Cardiovascular Exam: REGULAR RHYTHM, +S1, +S2 - GI/Abdominal Exam GI & Abdominal Exam: Distended (obese ), Normal Bowel Sounds, Soft. absent: Tenderness - Extremities Exam Extremities exam: Positive for: normal inspection. Negative for: calf tenderness, pedal edema - Back Exam Back exam: NORMAL INSPECTION - Neurological Exam Neurological exam: Alert, CN II-XII Intact, Oriented x3 Additional comments: No pronator drift noted, heel to [place] intact b/l no obvious sensory or motor defect appreciated b/l - Psychiatric Exam Psychiatric exam: Normal Mood - Skin Skin Exam: Normal Color Results - Vital Signs Recent Vital Signs: Last Vital Signs Temp 98.1 F 03/14/19 08:35 Pulse 72 03/14/19 08:35 Resp 17 03/14/19 08:35 BP 148/79 03/14/19 08:35 Pulse Ox 98 03/14/19 16:38 - Labs Result Diagrams: 03/14/19 09:45 03/14/19 09:45 Labs: Laboratory Results - last 24 hr 03/14/19 03/14/19 09:45 09:45 WBC 8.0 RBC 4.24 Hgb 9.9 L Hct 31.6 L MCV 74.4 L D MCH 23.4 L MCHC 31.4 L RDW 20.5 H Plt Count 262 MPV 8.7 Neut % (Auto) 68.8 Lymph % (Auto) 20.1 [place] % (Auto) 7.8 Eos % (Auto) 2.1 Baso % (Auto) 1.2 Neut # (Auto) 5.5 Lymph # (Auto) 1.6 [place] # (Auto) 0.6 Eos # (Auto) 0.2 Baso # (Auto) 0.1 Sodium 136 Potassium 3.9 Chloride 102 Carbon Dioxide 26 Anion Gap 12 BUN 11 Creatinine 0.5 L Est GFR ( Amer) > 60 Est GFR (Non-Af Amer) > 60 Random Glucose 229 H Calcium 8.3 L Total Bilirubin 0.4 AST 32 ALT 20 Alkaline Phosphatase 78 Total Protein 7.2 Albumin 3.8 Globulin 3.4 Albumin/Globulin Ratio 1.1 Assessment & Plan - Assessment and Plan (Free Text) Assessment: Assessment/Plan: 38 YO Female with PMHx of CVA is admitted for headache, r/o CVA. Headache -likely complicated migraine, r/o CVA given hx -CT head; no acute intracranial hemorrhage -Neuro consulted: The patient may have had a complicated migraine in the past and may be having another one now. Recs include MRI and MRA, aspirin 81 mg, allow for permissive HTN, Fluids with NS at 100 mL/hr are recommended. PT/OT -c/w Tylenol as ordered -MRI/MRA ordered and pending -asa started Hx of CVA -hx of CVA with R sided facial droop -no findings of stroke in CT -Neuro on board -started on asa -lipid, hba1c ordered, follow up in AM -Statin if needed DVt prolx -lovenox SC <Hilario Danielson D - Last Filed: 03/14/19 20:01> Results - Vital Signs Recent Vital Signs: Last Vital Signs Temp 98.2 F 03/14/19 17:00 Pulse 78 03/14/19 17:00 Resp 17 03/14/19 17:00 BP 140/80 03/14/19 17:00 Pulse Ox 99 03/14/19 17:00 - Labs Result Diagrams: 03/14/19 09:45 03/14/19 09:45 Labs: Laboratory Results - last 24 hr 03/14/19 03/14/19 09:45 09:45 WBC 8.0 RBC 4.24 Hgb 9.9 L Hct 31.6 L MCV 74.4 L D MCH 23.4 L MCHC 31.4 L RDW 20.5 H Plt Count 262 MPV 8.7 Neut % (Auto) 68.8 Lymph % (Auto) 20.1 [place] % (Auto) 7.8 Eos % (Auto) 2.1 Baso % (Auto) 1.2 Neut # (Auto) 5.5 Lymph # (Auto) 1.6 [place] # (Auto) 0.6 Eos # (Auto) 0.2 Baso # (Auto) 0.1 Sodium 136 Potassium 3.9 Chloride 102 Carbon Dioxide 26 Anion Gap 12 BUN 11 Creatinine 0.5 L Est GFR ( Amer) > 60 Est GFR (Non-Af Amer) > 60 Random Glucose 229 H Calcium 8.3 L Total Bilirubin 0.4 AST 32 ALT 20 Alkaline Phosphatase 78 Total Protein 7.2 Albumin 3.8 Globulin 3.4 Albumin/Globulin Ratio 1.1 Attending/Attestation - Attestation I have personally seen and examined this patient.: Yes I have fully participated in the care of the patient.: Yes I have reviewed all pertinent clinical information: Yes Notes (Text): 03/14/19 20:00 Patient seen and examined with resident. Case discussed and agreed with assessm ent and plan of management.
[2019-03-14] MEDS ORDERED: Enoxaparin 40 mg Syringe SC STA (19:15)
[2019-03-14] MEDS ORDERED: Sodium Chloride 0.9% 1,000 ML IV SCH (19:15)
[2019-03-15 06:26] LABS: BASO % 0.5 % (0.0-2.0); EOS # 0.2 K/uL (0.0-0.7); EOS % 3.3 % (0.0-4.0); HEMOGLOBIN 10.4 g/dL (12.0-16.0); LYMPH # 2.1 K/uL (1.0-4.3); LYMPH % 29.9 % (20.0-40.0); MEAN CELL VOLUME 73.6 fl (81.0-99.0); MEAN CORPUSCULAR HEMOGLOBIN 23.3 pg (27.0-31.0); MEAN CORPUSCULAR HGB CONC 31.6 g/dL (33.0-37.0); MEAN PLATELET VOLUME 8.6 fl (7.2-11.7); MONO # 0.6 K/uL (0.0-0.8); MONO % 7.8 % (0.0-10.0); NEUT # 4.1 K/uL (1.8-7.0); NEUT % 58.5 % (50.0-75.0); RBC 4.46 Mil/uL (3.80-5.20); RED CELL DISTRIBUTION WIDTH 19.8 % (11.5-14.5); WHITE BLOOD COUNT 7.1 K/uL (4.8-10.8)
[2019-03-15 06:32] LABS: BLOOD UREA NITROGEN 10 mg/dl (7-17); CALCIUM 8.4 mg/dL (8.4-10.2); GFR NON-AFRICAN AMERICAN > 60; HDL CHOLESTEROL 42 MG/DL (30-70)
[2019-03-15 06:43] LABS: LDL CHOLESTEROL 106 mg/dL (0-129)
[2019-03-15 08:19] VITALS: RESP 20
[2019-03-15] MEDS ORDERED: Pantoprazole 40 mg EC Tab PO SCH (09:00)
--- NOTE | 2019-03-15 11:41 | CP.PCM.PN ---
Subjective - Date & Time of Evaluation Date of Evaluation: 03/15/19 Time of Evaluation: 11:39 - Subjective Subjective: Neuro Follow-Up Note: Mrs. Avelar was evaluated this morning at bedside. Family present. She is no longer c/o a h/a and dizziness. She states that her symptoms resolved and wishes to go home today. She is refusing to have the MRI and MRA Head and Neck done as she is claustrophobic. I discussed the possibility of her h/a and s ymptoms being complicated migraine related. Per pt she only gets h/a when she is stressed. She is not open to trying medication for migraines at this time but will reconsider if they become unbearable. Currently ROS is unremarkable. Objective - Vital Signs/Intake and Output Vital Signs (last 24 hours): Temp Pulse Resp BP Pulse Ox 97.8 F 64 20 135/79 96 03/15/19 08:19 03/15/19 08:19 03/15/19 08:19 03/15/19 08:19 03/15/19 08:19 - Medications Medications: Current Medications Acetaminophen (Tylenol 325mg Tab) 650 mg PO Q6 PRN PRN Reason: Headache Aspirin (Aspirin Chewable) 81 mg PO DAILY [facility] Last Admin: 03/15/19 08:37 Dose: 81 mg Docusate Sodium (Colace Liquid) 100 mg NG BID PRN PRN Reason: Constipation Pantoprazole Sodium (Protonix Ec Tab) 40 mg PO DAILY [facility] Last Admin: 03/15/19 08:37 Dose: 40 mg - Labs Labs: 03/15/19 05:30 03/15/19 05:30 - Constitutional Appears: Well, Non-toxic, No Acute Distress - Head Exam Head Exam: ATRAUMATIC, NORMAL INSPECTION, NORMOCEPHALIC - Eye Exam Eye Exam: EOMI, PERRL. absent: Nystagmus Pupil Exam: NORMAL ACCOMODATION, PERRL Additional comments: Pt has right facial droop and ptosis since 2004. - ENT Exam ENT Exam: Mucous Membranes Moist - Neck Exam Neck Exam: Full ROM, Normal Inspection - Respiratory Exam Respiratory Exam: NORMAL BREATHING PATTERN - Extremities Exam Extremities Exam: Full ROM, Normal Inspection - Back Exam Back Exam: Full ROM, NORMAL INSPECTION - Neurological Exam Neurological Exam: Alert, Awake, Oriented x3, Reflexes Normal. absent: CN II- XII Intact Neuro motor strength exam: Left Upper Extremity: 5, Right Upper Extremity: 5, Left Lower Extremity: 5, Right Lower Extremity: 5 Additional comments: No dysarthria or aphasia. No motor or sensory deficits. + right facial droop and ptosis since 2004. No tremors or abnormal movements. - Psychiatric Exam Psychiatric exam: Normal Affect, Normal Mood - Skin Skin Exam: Normal Color Assessment and Plan (1) Headache Assessment & Plan: Imaging reviewed: -CT head (03/14/19): unremarkable. Pt is neurologically stable for d/c home today with outpatient f/u with the clinic and with neuro. At this time her h/a has resolved. She is not open to medications for poss migraines at this tie; though I encouraged her to discuss this with her PMD at the clinic. She can also f/u with Dr. John in the office within 1 month. Should she agree to have an MRI done, it can be open and as outpatient. Reconsult prn. Thank you for this consultation. [place]ana Green, NICHELLE, [employer] d/w Dr. John Status: Acute
--- NOTE | 2019-03-15 12:24 | CP.PCM.DIS ---
<Jessica Hodge - Last Filed: 03/15/19 12:27> Provider - Provider Date of Admission: 03/14/19 16:40 Attending physician: Hilario Danielson MD Consults: 03/14/19 17:23 Neurology Consult Routine Comment: Consulting Provider: Og John Consulting Physician: Og John Reason for Consult: CVA Time Spent in preparation of Discharge (in minutes): 30 Diagnosis - Discharge Diagnosis (1) Headache Status: Acute Comment: -likely complicated migraine, r/o CVA given hx. -CT head; no acute intracranial hemorrhage. -Neuro consulted: The patient may have had a complicated migraine in the past and may be having another one now. Recs include MRI and MRA, aspirin 81 mg, allow for permissive HTN, Fluids with NS at 100 mL/hr are recommended. PT/OT; Patient can follow up outpatient. -MRI/MRA ordered patient refused MRI and MRA as well declines any outpatient medications. (2) History of CVA (cerebrovascular accident) Status: Acute Comment: -hx of CVA with R sided facial droop. -no findings of stroke in CT. - Neuro on board. -started on asa. -lipids- normal , pending hba1c Hospital Course - Lab Results Lab Results: Most Recent Lab Values WBC 7.1 K/uL (4.8-10.8) 03/15/19 05:30 RBC 4.46 Mil/uL (3.80-5.20) 03/15/19 05:30 Hgb 10.4 g/dL (12.0-16.0) L 03/15/19 05:30 Hct 32.8 % (34.0-47.0) L 03/15/19 05:30 MCV 73.6 fl (81.0-99.0) L 03/15/19 05:30 MCH 23.3 pg (27.0-31.0) L 03/15/19 05:30 MCHC 31.6 g/dL (33.0-37.0) L 03/15/19 05:30 RDW 19.8 % (11.5-14.5) H 03/15/19 05:30 Plt Count 269 K/uL (130-400) 03/15/19 05:30 MPV 8.6 fl (7.2-11.7) 03/15/19 05:30 Neut % (Auto) 58.5 % (50.0-75.0) 03/15/19 05:30 Lymph % (Auto) 29.9 % (20.0-40.0) 03/15/19 05:30 Amador % (Auto) 7.8 % (0.0-10.0) 03/15/19 05:30 Eos % (Auto) 3.3 % (0.0-4.0) 03/15/19 05:30 Baso % (Auto) 0.5 % (0.0-2.0) 03/15/19 05:30 Neut # (Auto) 4.1 K/uL (1.8-7.0) 03/15/19 05:30 Lymph # (Auto) 2.1 K/uL (1.0-4.3) 03/15/19 05:30 Amador # (Auto) 0.6 K/uL (0.0-0.8) 03/15/19 05:30 Eos # (Auto) 0.2 K/uL (0.0-0.7) 03/15/19 05:30 Baso # (Auto) 0.0 K/uL (0.0-0.2) 03/15/19 05:30 Sodium 136 mmol/l (132-148) 03/15/19 05:30 Potassium 3.7 MMOL/L (3.6-5.0) 03/15/19 05:30 Chloride 102 mmol/L (98-107) 03/15/19 05:30 Carbon Dioxide 27 mmol/L (22-30) 03/15/19 05:30 Anion Gap 11 (10-20) 03/15/19 05:30 BUN 10 mg/dl (7-17) 03/15/19 05:30 Creatinine 0.6 mg/dl (0.7-1.2) L 03/15/19 05:30 Est GFR ( Amer) > 60 03/15/19 05:30 Est GFR (Non-Af Amer) > 60 03/15/19 05:30 POC Glucose (mg/dL) 210 mg/dL (65-110) H 03/15/19 11:15 Random Glucose 155 mg/dL (65-105) H 03/15/19 05:30 Calcium 8.4 mg/dL (8.4-10.2) 03/15/19 05:30 Total Bilirubin 0.4 mg/dl (0.2-1.3) 03/14/19 09:45 AST 32 U/L (14-36) 03/14/19 09:45 ALT 20 U/L (9-52) 03/14/19 09:45 Alkaline Phosphatase 78 U/L (38-126) 03/14/19 09:45 Total Protein 7.2 G/DL (6.3-8.2) 03/14/19 09:45 Albumin 3.8 g/dL (3.5-5.0) 03/14/19 09:45 Globulin 3.4 gm/dL (2.2-3.9) 03/14/19 09:45 Albumin/Globulin Ratio 1.1 (1.0-2.1) 03/14/19 09:45 Triglycerides 137 mg/DL (0-149) D 03/15/19 05:30 Cholesterol 173 mg/dL (0-199) 03/15/19 05:30 LDL Cholesterol Direct 106 mg/dL (0-129) 03/15/19 05:30 HDL Cholesterol 42 MG/DL (30-70) 03/15/19 05:30 - Hospital Course Hospital Course: 38 yo Female with history of CVA was admitted for headache, r/o CVA. No acute events noted during hospital stay and no events noted on monitoring and evaluation advisor. No findings of stroke on CT scan. Neurology consulted and recommended a MRI and MRA- patient refused both exams and stated she felt much better, headache was relieved. Patient started on Aspirin during hospital stay and is to continue aspirin therapy outpatient. Lipids normal range. Hemoglobin A1C pending. Will follow up outpatient at [facility]. Discharge Exam - Head Exam Head Exam: ATRAUMATIC, NORMAL INSPECTION, NORMOCEPHALIC - Eye Exam Eye Exam: Normal appearance Pupil Exam: PERRL Additional comments: Droop of right eye. - ENT Exam ENT Exam: Mucous Membranes Moist - Respiratory Exam Respiratory Exam: Clear to PA & Lateral, NORMAL BREATHING PATTERN, UNREMARKABLE. absent: Accessory Muscle Use, Chest Wall Tenderness, Decreased Breath Sounds, Prolonged Expiratory Phase, Rales, Rhonchi, Wheezes, Respiratory Distress, Stridor - Cardiovascular Exam Cardiovascular Exam: REGULAR RHYTHM, +S1, +S2 - GI/Abdominal Exam GI & Abdominal Exam: Normal Bowel Sounds, Soft, Unremarkable. absent: Diminished Bowel Sounds, Distended, Firm, Rebound, Rigid, Tenderness - Extremities Exam Extremities exam: full ROM, normal capillary refill, normal inspection, pedal pulses present - Neurological Exam Neurological exam: Alert, CN II-XII Intact, Normal Gait, Oriented x3 Additional comments: Sensation intact bilaterally. Strength 5/5 in all extremities and equal bilaterally. - Psychiatric Exam Psychiatric exam: Normal Affect, Normal Mood - Skin Skin Exam: Dry, Intact, Normal Color, Warm Discharge Plan - Follow Up Plan Condition: STABLE Disposition: HOME/ ROUTINE Patient education suggested?: Yes Instructions: Stroke (DC), Headache, Adult (DC) Additional Instructions: follow up with Neurology outpatient. mari en la clinica con Dr.Aguierre schwartz 03/22/19 3:40pm Referrals: Og John MD [Medical Doctor] - [facility] [Outside] <Hilario Danielson - Last Filed: 03/15/19 13:43> Provider - Provider Date of Admission: 03/14/19 16:40 Attending physician: Hilario Danielson MD Consults: 03/14/19 17:23 Neurology Consult Routine Comment: Consulting Provider: Og John Consulting Physician: Og John Reason for Consult: A Hospital Course - Lab Results Lab Results: Most Recent Lab Values WBC 7.1 K/uL (4.8-10.8) 03/15/19 05:30 RBC 4.46 Mil/uL (3.80-5.20) 03/15/19 05:30 Hgb 10.4 g/dL (12.0-16.0) L 03/15/19 05:30 Hct 32.8 % (34.0-47.0) L 03/15/19 05:30 MCV 73.6 fl (81.0-99.0) L 03/15/19 05:30 MCH 23.3 pg (27.0-31.0) L 03/15/19 05:30 MCHC 31.6 g/dL (33.0-37.0) L 03/15/19 05:30 RDW 19.8 % (11.5-14.5) H 03/15/19 05:30 Plt Count 269 K/uL (130-400) 03/15/19 05:30 MPV 8.6 fl (7.2-11.7) 03/15/19 05:30 Neut % (Auto) 58.5 % (50.0-75.0) 03/15/19 05:30 Lymph % (Auto) 29.9 % (20.0-40.0) 03/15/19 05:30 Amador % (Auto) 7.8 % (0.0-10.0) 03/15/19 05:30 Eos % (Auto) 3.3 % (0.0-4.0) 03/15/19 05:30 Baso % (Auto) 0.5 % (0.0-2.0) 03/15/19 05:30 Neut # (Auto) 4.1 K/uL (1.8-7.0) 03/15/19 05:30 Lymph # (Auto) 2.1 K/uL (1.0-4.3) 03/15/19 05:30 Amador # (Auto) 0.6 K/uL (0.0-0.8) 03/15/19 05:30 Eos # (Auto) 0.2 K/uL (0.0-0.7) 03/15/19 05:30 Baso # (Auto) 0.0 K/uL (0.0-0.2) 03/15/19 05:30 Sodium 136 mmol/l (132-148) 03/15/19 05:30 Potassium 3.7 MMOL/L (3.6-5.0) 03/15/19 05:30 Chloride 102 mmol/L (98-107) 03/15/19 05:30 Carbon Dioxide 27 mmol/L (22-30) 03/15/19 05:30 Anion Gap 11 (10-20) 03/15/19 05:30 BUN 10 mg/dl (7-17) 03/15/19 05:30 Creatinine 0.6 mg/dl (0.7-1.2) L 03/15/19 05:30 Est GFR ( Amer) > 60 03/15/19 05:30 Est GFR (Non-Af Amer) > 60 03/15/19 05:30 POC Glucose (mg/dL) 210 mg/dL (65-110) H 03/15/19 11:15 Random Glucose 155 mg/dL (65-105) H 03/15/19 05:30 Calcium 8.4 mg/dL (8.4-10.2) 03/15/19 05:30 Total Bilirubin 0.4 mg/dl (0.2-1.3) 03/14/19 09:45 AST 32 U/L (14-36) 03/14/19 09:45 ALT 20 U/L (9-52) 03/14/19 09:45 Alkaline Phosphatase 78 U/L (38-126) 03/14/19 09:45 Total Protein 7.2 G/DL (6.3-8.2) 03/14/19 09:45 Albumin 3.8 g/dL (3.5-5.0) 03/14/19 09:45 Globulin 3.4 gm/dL (2.2-3.9) 03/14/19 09:45 Albumin/Globulin Ratio 1.1 (1.0-2.1) 03/14/19 09:45 Triglycerides 137 mg/DL (0-149) D 03/15/19 05:30 Cholesterol 173 mg/dL (0-199) 03/15/19 05:30 LDL Cholesterol Direct 106 mg/dL (0-129) 03/15/19 05:30 HDL Cholesterol 42 MG/DL (30-70) 03/15/19 05:30 Attending/Attestation - Attestation I have personally seen and examined this patient.: Yes I have fully participated in the care of the patient.: Yes I have reviewed all pertinent clinical information, including history, physical exam and plan: Yes Notes (Text): 03/15/19 13:42 Patient seen and examined with resident. Case discussed and agreed with assessment. Patient discharged in stable condition.
[2019-03-15 12:45] VITALS: BP 158/88; PULSE 55; TEMP 98.2
[2019-03-15 16:22] VITALS: O2SAT 98
== END 2019-03-15 14:54 | disposition home or self-care (01) ==
LOC: H.ER 08:31 → H.ERHOLD 16:40 → H.TEL 22:53
DX: G43.109 Migraine with aura, not intractable, without status migrainosus (principal); I69.392 Facial weakness following cerebral infarction; I69.351 Hemiplegia and hemiparesis following cerebral infarction affecting right dominant side; F40.240 Claustrophobia; E03.9 Hypothyroidism, unspecified; Z53.29 Procedure and treatment not carried out because of patient's decision for other reasons
CPT/HCPCS: 36415; 70450; 80048; 80053; 80061; 81025; 82948; 83036; 85025; 93005; 96361; 96372; 96374; 97161; 99285; G0378; G8978; G8979; J1650; J1885; J7030